=== PATIENT | male | born 1955 | race Caucasian/White ===

== ENCOUNTER 2023-12-27 01:35 | Observation (INO) | payer OTHER, SELFPAY ==
[2023-12-26 21:44] VITALS: BP 159/72
[2023-12-26 22:00] VITALS: BP 138/71
[2023-12-26 22:14] LABS: % Basophils 0.8 % (0-2); % Immature Granulocytes 0.5 % (0-0.5); % Lymphocytes 18.6 % (20.5-51.1); % Monocytes 9.2 % (1.7-9.3); % Neutrophils 67.9 % (42.2-75.2); Absolute Basophils 0.1 10^3/uL (0-0.2); Absolute Eosinophils 0.3 10^3/uL (0-0.7); Absolute Immature Granulocytes 0.1 10^3/uL (0-0.05); Absolute Neutrophils 7.4 10^3/uL (1.4-6.5); Hematocrit 32.4 % (39.0-52.0); Hemoglobin 11.2 g/dL (13.0-18.0); Mean Corp Hgb Conc. 34.6 g/dL (33.0-37.0); Mean Corpuscular Hgb 33.2 pg (27.0-31.0); Mean Corpuscular Volume 96.1 fL (80.0-94.0); Mean Platelet Volume 8.9 fL (7.4-10.4); Nucleated Red Blood Cells % 0 % (-); Platelet Count 346 10^3/uL (130-400); Red Blood Cell Count 3.37 10^6/uL (4.70-6.10); White Blood Cell Count 10.8 10^3/uL (4.8-10.8)
[2023-12-26 22:36] LABS: ALT (SGPT) 13 U/L (0-50); AST (SGOT) 23 U/L (17-59); Albumin 4.1 g/dl (3.5-5.0); Alkaline Phosphatase 62 U/L (38-126); Blood Urea Nitrogen 18 mg/dl (9-20); Carbon Dioxide 27 mmol/L (22-30); Chloride 106 mmol/L (98-107); Glucose 112 mg/dl (70-99); Potassium 4.1 mmol/L (3.5-5.1); Sodium 136 mmol/L (135-145); Total Bilirubin 0.4 mg/dl (0.2-1.3); Total Protein 6.9 g/dl (6.3-8.2); eGFR > 60.00
[2023-12-26 22:38] LABS: Troponin I < 0.012 ng/ml
--- NOTE | 2023-12-26 22:39 | ED.GENMED ---
History of Present Illness
General
Chief Complaint: Chest Pain
Source: patient, spouse and family
Exam Limitations: none
Time Seen by Provider: 12/26/23 22:12
Nursing documentation reviewed up to this point in time: agreed with
Travel History
Have you had any contact with someone who has COVID-19?: No
Do you have any symptoms of coronavirus? Fever > 100 degrees, chills, cough, shortness of breath, sore throat, loss of taste or smell, muscle aches, or headache?: No
History of Present Illness
History of Present Illness:
68-year-old male with a past medical history of DVT, hypothyroidism, CML, obesity who presents to the emergency department accompanied by his family for evaluation of chest pain. Patient reports onset of symptoms around an hour ago and they have
been constant and worsening since then�he reports pain is quite severe but started relatively mild. He describes a pressure sensation that starts in the left shoulder and radiates towards the left chest/upper back as well as towards the left neck
and head. No clear triggering or relieving factors noted�symptoms started while he was sitting at rest. He reports associated shortness of breath. He denies any abdominal pain, nausea, vomiting, diaphoresis. He denies any weakness or numbness in
his extremities, change in vision, change in speech. He denies having had similar symptoms in the past. He denies any known history of cardiac disease.
Past History
Past History
ED Past Medical History: Hypothyroidism and Other (herniated disc L5. Diagnosed 10 years ago. CHANEL)
ED Past Surgical History: Other (Hernia repair, eye surgery)
Social History
Tobacco: Former smoker
Personal:
Living: with family
Employment: Employed (is a cook)
Review of Systems
Review of Systems
All Other Systems: ROS reviewed and negative except as documented in HPI and ROS
Constitutional: Denies fever or chills
EENT: Denies sore throat or runny nose
Respiratory: Reports trouble breathing; Denies cough
Cardiac: Reports chest pain; Denies diaphoresis, palpitations or syncope
ABD/GI: Denies abdominal pain, nausea, vomiting or diarrhea
: Denies flank pain
Musculoskeletal: Reports back pain; Denies neck pain
Neurological: Reports headache; Denies dizzy, weakness or numbness
Phy Exam
Physical Exam
Physical Exam:
General: Awake, alert, oriented x3; appears uncomfortable
Head: Normocephalic, atraumatic
Eyes: Conjunctiva normal, EOMI, pupils equal round and reactive to light bilaterally
Throat: Airway intact, handling secretions
Neck: Trachea midline, supple without meningismus
Lungs: Clear to auscultation bilaterally, no wheezing, rales, rhonchi
Heart: Regular rate and rhythm, no murmurs, gallops, or rubs
Abd: Soft, non distended, nontender with no masses
Neuro: Cranial nerves grossly intact, speech fluid, no gross motor or sensory deficits
Skin: no rash
Extremities: No edema in extremities, equal pulses in all extremities
Scores
Heart Failure Risk
Heart Failure Risk Score: Not Applicable
Heart Score for Chest Pain Patients
STEMI patient?: No
History: Moderately Suspicious
ECG: Nonspecific Repolarization
Age: >/= 65 years
Risk Factors: 1 or 2 Risk Factors
Troponin: </= Normal Limit
Heart Score for Chest Pain Patients: 5
Heart Score Risk: 20.3% MACE over next 6 weeks
Withdrawal Assessment of Alcohol
Withdrawal Assessment Completed?: Not applicable
Course
Orders/Labs/Results
Orders:
Orders
12/26/23 21:43
Electrocardiogram (*1) Urgent
Reason for Study: Shortness of Breath
EKG- Treatment ONCE
12/26/23 22:07
Complete Blood Count/With Diff Urgent
Comprehensive Metabolic Panel Urgent
Troponin I Urgent
12/26/23 22:37
Portable Chest Xray [CR Chest Portable - 1 View] Urgent
Comment:
Reason For Exam: chest pain
Reason Study Needs to be Portable: Unable to Transport
12/26/23 22:39
CT Chest Pe Study Urgent
Comment:
Reason For Exam: left chest pain, h/o DVT
CT Head W/o Iv Contrast Urgent
Comment:
Reason For Exam: severe left headache
Morphine Sulfate 4 mg IV NOW STA
12/26/23 22:48
PTT Urgent
Prothrombin Time Urgent
12/27/23 01:00
Troponin I Urgent
Abnormal Lab Results
12/26/23
22:07
RBC 3.37 L 10^6/uL
(4.70-6.10)
Hgb 11.2 L g/dL
(13.0-18.0)
Hct 32.4 L %
(39.0-52.0)
MCV 96.1 H fL
(80.0-94.0)
MCH 33.2 H pg
(27.0-31.0)
Abs Immat Gran (auto) 0.1 H 10^3/uL
(0-0.05)
Absolute Neuts (auto) 7.4 H 10^3/uL
(1.4-6.5)
Absolute Monos (auto) 1.0 H 10^3/uL
(0.1-0.6)
Lymphocytes % 18.6 L %
(20.5-51.1)
Glucose 112 H mg/dl
(70-99)
12/26/23 22:07
12/26/23 22:07
Vital Signs
Initial and Last Documented VS:
Initial Vital Signs
Temp Pulse Resp BP Pulse Ox
36.7 C 71 18 159/72 97
12/26/23 21:44 12/26/23 21:44 12/26/23 21:44 12/26/23 21:44 12/26/23 21:44
Last Documented Vital Signs
Temp Pulse Resp BP Pulse Ox
36.7 C 72 20 138/71 97
12/26/23 21:44 12/26/23 23:19 12/26/23 22:45 12/26/23 22:00 12/26/23 23:00
MDM/Problems Addressed
Differential Diagnosis Includes:
Acute AL, acute pulmonary embolism, acute aortic dissection, pneumothorax, GERD, costochondritis
MDM/Problems Addressed:
68-year-old male presents to the emergency room for evaluation of significant left-sided chest pain rating to the left neck, shoulder, head as well as the mid back. Worsening over the past hour. He arrived hypertensive normalized by my assessment,
rest of vitals normal. EKG shows no STEMI. Plan to place an IV check labs including a CBC and a CMP, troponin. Will check a stat portable chest x-ray to rule out pneumothorax. If chest x-ray nondiagnostic plan likely for CTA to rule out PE given
his history and the acuity of onset with associated dyspnea. Check CT head given report of significant left-sided headache as well. Will monitor closely here reassess after the above.
Initial labs reviewed: CBC shows stable anemia, CMP no clinically significant abnormalities. Initial troponin undetectable. Awaiting imaging as above.
CTA of the chest negative for acute pulmonary embolism, negative for acute aortic dissection, no other acute pathology noted. CT head negative. Vitals have remained stable. Pain did improve with morphine. HEART score 5. Will admit for observation
overnight and serial troponins. Case discussed with hospitalist for admission.
Chronic conditions affecting care:
History of DVT no longer on anticoagulation�higher risk for DVT/PE
Acute Exacerbation and/or Progression of Chronic Illness:
Acutely hypertensive resolved without intervention continue to monitor but no emergent antihypertensive indicated at present
Acute Exacerbation and/or Progression of Chronic Illness: HTN
*Radiology
Radiology exam reviewed: preliminary read by ED provider and radiology read reviewed
*Pulse Oximetry
Patient hypoxic: no
*EKG
Interpreted by ED Provider?: Yes
Heart Rate: 66
Rate: normal
Rhythm: sinus
[place]: normal axis
Interval: normal interval
QRS Pattern: normal QRS
Ischemia: other (Inferior infarct age undetermined)
*Critical Care Note
Total Time (30-74mins, 75-104mins- exclusive of procedures): Not Applicable
Data Reviewed
Review of Other/Old Records Reveals: Labs and Records
Source: patient, records, spouse and family
Patient Management
Discussion with other providers: Hospitalist (Discussed with hospitalist)
Escalation/DeEscalation of care consider admission/obs:
Admission indicated
ED Attending Note
-
Portions of this chart may have been created with voice recognition software.� Occasional wrong word or��sound alike� substitutions may have occurred due to the inherent limitations of voice recognition software.
Discharge Plan
Departure
Patient Disposition: Admit
Date of Disposition: 12/27/23
Time of Disposition: 00:11
Admit to doctor: Oswald
Presentation/result/management discussed w/ accepting MD/DO: Hospitalist
Discharge Problem:
Chest pain
Prescriptions:
No Action
levothyroxine [Synthroid] 200 MCG tablet
200 mcg PO DAILY
acetaminophen [Tylenol] 325 mg Tablet
650 mg PO Q6HPRN PRN (Reason: mild pain)
cholecalciferol (vitamin D3) [Vitamin D3] 25 mcg (1,000 unit) Capsule
25 mcg PO DAILY
Referrals:
Nicolas Lester DO [Family Provider] -
Interventions
Interventions:
*Risk Screen - Suicide Last Done: 12/26/23 21:51
*General Assessment Last Done: 12/26/23 21:51
*Neglect/Abuse Screening Last Done: 12/26/23 21:51
ED- Fall Risk Assessment Last Done: 12/26/23 22:12
*ED COVID-19 Vaccine History Last Done: 12/26/23 21:57
ED- Cardiac Assessment Last Done: 12/26/23 22:12
Discharge Date and Time
Print Language: WOLOF
[2023-12-26] MEDS: MORPHINE SULFATE 4 MG IV (22:42)
[2023-12-26 23:08] LABS: INR 0.96; PT 12.6 Sec (11.4-14.6)
[2023-12-26 23:09] LABS: APTT 31.1 Sec (23.4-35.0)
[2023-12-26 23:25] VITALS: BP 158/81
[2023-12-27] VITALS (10 sets, daily range): BP systolic 118–165; BP diastolic 63–81; PULSE 75–78; BMI 33.2
[2023-12-27] MEDS: LOW STRENGTH ASPIRIN 324 MG PO (00:38)
--- NOTE | 2023-12-27 00:38 | HPS.HSE ---
Family Physician
-
Family Physician: Nicolas Lester
Chief Complaint
-
chest pain
History of Present Illness
This is a 68-year-old male with past medical history that is significant for CML currently in remission on imatinib, depression, hypothyroidism, CHANEL who presents to the emergency department with acute onset of a left-sided chest pain that started
around 2 hours prior to coming to the emergency department.
Patient reported that he was sitting down after dinner when he suddenly developed a sharp chest pain that started in the left shoulder and appears to be radiating down the left axillary region as well as to the left shoulder and left neck. The pain
is worse with inspiration. It is also worse with abduction of the arm across the chest as well as with coughing. He does not appear to be affected by laying down or sitting up. Associated with some shortness of breath coming from pain with deep
inspiration. He denies any nausea or vomiting. He denies any diaphoresis. He denied having palpitations lightheadedness or dizziness.
Patient reported that he had been in usual state of health but a few days earlier he reports that he multiple family members had cold and flu symptoms with rhinorrhea cough and congestion. He has not had fevers or chills. He denies any productive
cough. Patient denies fall, changes in physical activity, rash or medication changes.
Patient had a stress test about a year ago which was negative. He denies manage personal history of CAD, CVA, diabetes or hyperlipidemia. Reports history of childhood asthma but no recent exacerbations.
On arrival in the emergency department the patient was afebrile hemodynamically stable and in moderate distress due to chest pain. Blood pressure was 138/70 pulse 72 oxygen saturation 97% on room air. ECG showed normal sinus rhythm rate 66
possible Q waves in 3 but otherwise unremarkable. X-ray reported a possible left lower lobe infiltrate versus atelectasis. CBC with a white count of 10.8, hemoglobin of 11 platelet of 346. Electrolytes BUN/creatinine all within normal limits.
Troponin was negative. CT PE with nothing acute.
Medical History
Past Medical History
Past Medical History: Reports Asthma and Hypothyroidism
Additional Past Medical History:
CML
CHANEL
Past Surgical History: Reports None
Social History
Tobacco: Non-smoker
Alcohol: None
Drug: None
Personal:
Living: With Family
Employment: Retired
Family History
Family History: Not pertinent
Allergies / Home Medications
Allergies reflects when Allergies were last updated in [facility].
Home Medications with original date entered in [facility]
Allergy/Medication List:
Allergies
Allergy/AdvReac Type Severity Reaction Status Date / Time
No Known Allergies Allergy Verified 12/20/22 08:19
Home Medications
levothyroxine 200 mcg tablet (Synthroid) 200 mcg PO DAILY 12/09/18
acetaminophen 325 mg tablet (Tylenol) 650 mg PO Q6HPRN PRN mild pain 12/20/22
cholecalciferol (vitamin D3) 25 mcg (1,000 unit) capsule (Vitamin D3) 25 mcg PO DAILY 12/20/22
Review of Systems
-
History Source: Patient
Constitutional: Reports No Symptoms
EENT: Reports No Symptoms
Respiratory: Reports No Symptoms
Cardiac: Reports Chest Pain
Abdomen/GI: Reports No Symptoms
: Reports No Symptoms
Musculoskeletal: Reports No Symptoms
Skin: Reports No Symptoms
Neurological: Reports No Symptoms
Endocrine: Reports No Symptoms
Hematologic/Lymphatic: Reports No Symptoms
Psych: Reports No Symptoms
Physical Exam
Vital Signs
Vital Signs
Temp Pulse Resp BP Pulse Ox
98.1 F 76 19 165/81 99
12/26/23 21:44 12/27/23 00:30 12/27/23 00:30 12/27/23 00:00 12/27/23 00:30
Physical Exam
General: Well Developed, Well Nourished and Obese
HEENT: NormoCephalic, Anicteric, Moist mucous membranes and PERRLA
Respiratory: Clear, Crackles (LLL) and Other (Chest Wall Tenderness to palpation including sternum, left chest, left shoulder and left upper arm)
Cardiac: S1/S2 and Regular Rhythm
GI: Soft, Non Tender and Normal Bowel Sounds
Rectal: Deferred by Provider
Genito-urinary: Deferred by me
Musculoskeletal: No Clubbing, No Cyanosis and No Edema
Skin: Warm and Dry
Neuro: AO x 3
Hematologic/Lymphatic: No Lymphadenopathy
Psych: Calm
Laboratory Results
-
12/26/23 22:07
12/26/23 22:07
Laboratory Results
PT 12.6 Sec (11.4-14.6) 12/26/23 22:48
INR 0.96 12/26/23 22:48
APTT 31.1 Sec (23.4-35.0) 12/26/23 22:48
Total Bilirubin 0.4 mg/dl (0.2-1.3) 12/26/23 22:07
AST 23 U/L (17-59) 12/26/23 22:07
ALT 13 U/L (0-50) 12/26/23 22:07
Alkaline Phosphatase 62 U/L (38-126) 12/26/23 22:07
Troponin I < 0.012 ng/ml 12/26/23 22:07
Data Reviewed
-
Diagnostic Radiology: Image Personally Visualized and interpreted and Report Reviewed by me
CT Scan: Report Reviewed by me
Medical Tests (Nuc Med, Echo, EKG etc): Image Personally Visualized and interpreted
Lab Data: Labs Reviewed by me
Old Records: Reviewed
Impression/Plan
-
IMPRESSION:
PLAN:
1. Chest Pain - 68 y.o male with acute onset of left sided chest pain exacerbated by deep breathing, cough, movement of the shoulder, no associated nausea, vomiting or diaphoresis. Chest pain appears to be pleuritic in nature but tenderness to
palpation suggests musculoskeletal source. Troponin is negative. ECG without acute ischemia. CT PE is negative for PE. Xray suggestive of possible LLL infiltrate but not noted on the CT scan. No prior h/o CAD. Patient likely has non-cardiac
chest pain. Pleurisy vs costochondritis.
- admit to observation
- cycle cardiac enzymes
- aspirin 324 x 1 for now.
- telemetry
- obtain lipid panel and a1c
- given concern for inflammatory process, will give toradol 15mg now then prn
2. Hypothyroid - Continue levothyroxine
3. CHANEL
- CPAP HS
DVT PPX with lovenox sq
Full Code
[2023-12-27] MEDS: TORADOL 15 MG IV (01:03)
[2023-12-27 01:33] LABS: Troponin I < 0.012 ng/ml
--- NOTE | 2023-12-27 02:46 | PTCARENOTE ---
Patient arrived to 3 316-1 from ED via stretcher, ambulated from stretcher to bed Independently. Patient went into bathroom upon arrival and had BM. Patient is awake, alert and oriented. Currently patient is c/o pain to left side of body from
shoulder down to hip, left chest, and headache -- received IV Toradol in ED with slight relief prior to coming to unit -- see MAR. Patient is wearing glasses, states he wears upper and lower partial dentures that were left at home. Initiated on
ekg monitor tech #[id number] -- SR with BBBC and prolonged QT noted. CPAP at bedside and will be reconnected by respiratory once patient is settled in bed. Call lawrence placed within reach, patient verbalizes understanding of use. Will continue to monitor.
[2023-12-27 04:20] LABS: HDL Cholesterol 37 mg/dl; LDL Cholesterol, Calculated 84 mg/dl; Total Cholesterol 160 mg/dl (50-199); Triglyceride 198 mg/dl (10-149); Very Low Density Lipoprotein 39 mg/dl (0-30)
[2023-12-27 04:31] LABS: Troponin I < 0.012 ng/ml
[2023-12-27 05:08] LABS: Hepatitis C Antibody Negative (Negative)
[2023-12-27] MEDS: SYNTHROID 200 MCG PO (06:13)
--- NOTE | 2023-12-27 07:52 | CON.CAR ---
Addendum entered and electronically signed by Anna Velazquez MD 12/27/23 11:25:
Patient seen and evaluated personally. I agree with the note, documentation and plan of care as documented below.
68-year-old gentleman presented with nonspecific chest pain associated with inspiration and movement. Troponin is negative x 4. EKG is stable. Chest pain is atypical. CT scan done which was negative for PE.
Minimal risk factors including prediabetes, hemoglobin A1c is 5.1. Chest x-ray shows possible early pneumonia. Treatment as per primary team. Patient needs a stress test that can be done as an outpatient. If still here on Friday, we will try
getting it done during this hospitalization otherwise plan for outpatient workup.
Original Note:
Consultation
Consultation Request
Date/Time Consultation Requested: 12/27/2023 07:25
Date/Time Consultation Performed: 12/27/2023 09:10
Requesting Provider: Dr. Hector
Performing Provider: KASI Forbes for Dr. Velazquez
Reason for Consultation: Chest pain
Medical History
-
History of Present Illness:
Billy Duvall is a 68-year-old male with CML (in remission on imatinib), hypothyroidism, and CHANEL who presented to the emergency department with a chief complaint of chest pain. He was seated at the table watching his son doing art when he experienced
sudden onset of left-sided anterior chest pain. It went from his mid sternum into his axilla. The pain gets worse with inspiration. It gets worse when he lays flat. It does not change if he bends forward. He denies associated diaphoresis,
palpitations, dizziness, and nausea. He has no family history of coronary artery disease.
Primary Machine Programmer: Dr. Osborn
Past Medical History
Past Medical History: Cancer (CML), Hypothyroidism and Other (CHANEL)
Social History
Tobacco: Non-Smoker
Alcohol: None
Drug: None
Personal:
Living: With Family
Family History
Family History: Reviewed & Not Pertinent
Allergies / Home Medications
Allergy/AdvReac Type Severity Reaction Status Date / Time
No Known Allergies Allergy Verified 12/20/22 08:19
�Medication �Instructions �Recorded �Confirmed �Type
levothyroxine 200 mcg tablet 200 mcg PO DAILY 12/09/18 12/27/23 History
(Synthroid)
acetaminophen 325 mg tablet 650 mg PO Q6HPRN PRN mild pain 12/20/22 12/27/23 History
(Tylenol)
cholecalciferol (vitamin D3) 25 25 mcg PO DAILY 12/20/22 12/27/23 History
mcg (1,000 unit) capsule (Vitamin
D3)
Review of Systems
-
History Source: Patient
All other systems: Negative unless noted
Constitutional: No Symptoms
Cardiac: Chest Pain
Abdomen/GI: No Symptoms
: No Symptoms
Physical Exam
Vital Signs
Temp Pulse Resp BP Pulse Ox
97.9 F 68 14 127/75 96
12/27/23 07:00 12/27/23 07:00 12/27/23 07:00 12/27/23 07:00 12/27/23 07:00
Lab Results
12/26/23 22:07
12/26/23 22:07
Troponin I < 0.012 ng/ml 12/27/23 03:50
Physical Exam
General: Well Developed, Well Nourished, No Apparent Distress and Comfortable
HEENT: Normocephalic and Moist Mucous Membranes
Respiratory: Non Labored Respirations
Cardiac: S1/S2 and Regular Rhythm; Negative Peripheral Edema
Breast: Deferred by me
GI: Soft, Non Tender, Non Distended and Normal Bowel Sounds
Rectal: Deferred by Provider
Genito-urinary: No Costovertebral Tender
Musculoskeletal: No Clubbing, No Cyanosis and No Edema
Skin: Warm and Dry
Neuro: AO x 3
Hematologic/Lymphatic: No Lymphadenopathy
Psych: Calm
Impression / Plan
-
Chest pain
-Greater than 60 minutes of severe chest pain
-Chest pressure gets worse with deep breath and movement
-No PE on CT
-Troponin < 0.012 x 4
-EKG stable
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
Hypothyroidism, on levothyroxine
Prediabetes, HgbA1c 5.1%
Data Reviewed
-
EKG: Report Reviewed by me (Sinus rhythm, rate 65)
Radiology: Report Reviewed by me (CXR: Possible mild developing left lower lobe pneumonia versus atelectasis. Clinical and laboratory correlation recommended. New.)
CT Scan: Report Reviewed by me (Chest: No CTA evidence for acute central pulmonary arterial embolus; Head: No CT evidence for acute intracranial disease.)
Labs: Labs Reviewed by me
Old Records: Reviewed
[2023-12-27] MEDS: PROTONIX 40 MG PO (08:05)
[2023-12-27] MEDS: TYLENOL 650 MG PO (08:09)
[2023-12-27 08:30] LABS: Troponin I < 0.012 ng/ml
--- NOTE | 2023-12-27 09:24 | W.PN.HOSP.TC ---
Today's Communication/Plan
-
Await cardiology evaluation
X-ray of the thoracic spine
Assessment / Plan
Assessment / Plan
68-year-old male with history of CML admitted for chest pain
On examination patient is awake alert oriented
States that he has more pain with movement or deep breath
Cardiovascular system S1-S2 appreciated
No rub
Chest clear to auscultation
Abdomen soft and nontender
No thoracic spine tenderness noted
# Chest pain worse with movement troponin is negative so far
ECG without any ischemia
Patient has risk factors for coronary artery disease
CT PE study is negative
Aspirin
Add PPI
Stop Toradol
X ray of Thoracic spine
Also await cardiology evaluation to see if any concerns for pericarditis
# Hypothyroidism-continue Synthroid
# Sleep apnea for continue CPAP
# CML-On Gleevec as OP-Advised to bring from home.
# Obesity per BMI
# History of DVT in the past
# DVT prophylaxis-subcutaneous Lovenox
# Full code
D/W Cards
Anticipated Discharge: Within 24 hours
Subjective/Interval History
-
Date of Service: December 27, 2023
Objective Data
-
Labs:
Laboratory Results
12/26/23 12/26/23
22:07 22:48
WBC 10.8
Hgb 11.2 L
Hct 32.4 L
Plt Count 346
PT 12.6
INR 0.96
APTT 31.1
Sodium 136
Potassium 4.1
Chloride 106
Carbon Dioxide 27
BUN 18
Creatinine 0.9
Glucose 112 H
Calcium 9.0
Total Bilirubin 0.4
AST 23
ALT 13
Alkaline Phosphatase 62
Vital Signs:
Vital Signs
Temp Pulse Resp BP Pulse Ox
97.9 F 68 14 127/75 96
12/27/23 07:00 12/27/23 07:00 12/27/23 07:00 12/27/23 07:00 12/27/23 07:00
--- NOTE | 2023-12-27 09:26 | CM ---
Addendum entered by Shirley Bauer 12/28/23 15:45:
Plan: discharge to home when medically cleared; no needs; will provide ride home
Addendum entered by Shirley Bauer 12/27/23 09:32:
NICHOLS form explained and signed
Original Note:
Met with patient at bedside; initial assessment completed
Pharmacy verified: [facility]
Patient reports he lives with his and 26 yr old son who has Down Syndrome in a multilevel home; powder room on the 1st floor; 2nd floor bath has tub with shower, grab bar, and chair
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
DME: CPAP
SNF/Rehab/Home Health utilization history: none
Transportation: will provide ride home
Plan: discharge plan to be determined pending hospital course; will continue to monitor for needs
[2023-12-27 09:31] LABS: Glycohemoglobin (HgbA1c) 5.8 % (4.0-5.6)
[2023-12-27] MEDS: LOVENOX 40 MG SC (18:16)
[2023-12-27 19:07] LABS: Procalcitonin < 0.05 ng/ml (0.0-0.25)
[2023-12-28 03:19] VITALS: BP 135/67
[2023-12-28] MEDS: SYNTHROID 200 MCG PO (05:29)
[2023-12-28 07:00] VITALS: BP 138/70
[2023-12-28] MEDS: PROTONIX 40 MG PO (08:03)
[2023-12-28] MEDS: TYLENOL 650 MG PO ×2 (08:05→17:27)
[2023-12-28 11:00] VITALS: BP 124/56
[2023-12-28] MEDS: OMNIPAQUE 50 ML PO (12:03)
[2023-12-28 12:13] LABS: Blood Urea Nitrogen 15 mg/dl (9-20); Calcium 9.3 mg/dl (8.4-10.2); Carbon Dioxide 25 mmol/L (22-30); Chloride 105 mmol/L (98-107); Estimated Creatinine Clearance 107 ml/min; Glucose 89 mg/dl (70-99); Potassium 4.3 mmol/L (3.5-5.1); Sodium 138 mmol/L (135-145); eGFR > 60.00
--- NOTE | 2023-12-28 13:49 | W.PN.HOSP.TC ---
Today's Communication/Plan
-
CT A/P
Assessment / Plan
Assessment / Plan
68-year-old male with history of CML admitted for chest pain.
Now says LUQ and also lumbar area pain
On examination patient is awake alert oriented
States that he has more pain with movement or deep breath
Cardiovascular system S1-S2 appreciated
No rub
Chest clear to auscultation
Abdomen- mild tenderness Left UQ and Lumbar
No thoracic spine tenderness noted
# Chest pain worse with movement troponin is negative so far
ECG without any ischemia
Patient has risk factors for coronary artery disease
CT PE study is negative
Aspirin
Added PPI
X ray of Thoracic spine with no changes
CT A/P
Stress test at some point per cards.
# Hypothyroidism-continue Synthroid
# Sleep apnea for continue CPAP
# CML-On Gleevec as OP-Advised to bring from home.
# Obesity per BMI
# History of DVT in the past
# DVT prophylaxis-subcutaneous Lovenox
# Full code
D/W RN
Anticipated Discharge: Within 24 hours
Subjective/Interval History
-
Date of Service: December 28, 2023
Objective Data
-
Labs:
Laboratory Results
12/28/23
11:52
Sodium 138
Potassium 4.3
Chloride 105
Carbon Dioxide 25
BUN 15
Creatinine 0.8
Glucose 89
Calcium 9.3
Vital Signs:
Vital Signs
Temp Pulse Resp BP Pulse Ox
98.8 F 63 18 124/56 98
12/28/23 11:00 12/28/23 11:00 12/28/23 11:00 12/28/23 11:00 12/28/23 11:00
I&O
04/12/28/23 12/29/23
06:59 06:59 06:59
Intake Total 1225 / 1225
Balance 1225 / 1225
[2023-12-28 15:00] VITALS: BP 119/70
[2023-12-28] MEDS: ZOFRAN 4 MG IV (17:43)
[2023-12-28] MEDS: LOVENOX 40 MG SC (17:44)
[2023-12-28 20:40] VITALS: BP 115/58
[2023-12-28 23:21] VITALS: BP 118/61
[2023-12-29 04:52] VITALS: BP 125/64
[2023-12-29] MEDS: SYNTHROID PO (05:34)
[2023-12-29 07:00] VITALS: BP 143/67
[2023-12-29] MEDS: PROTONIX PO (07:41)
--- NOTE | 2023-12-29 08:50 | W.PN.CD ---
Addendum entered and electronically signed by Josue Méndez MD 12/29/23 09:04:
Reviewed with Dr Bender
Original Note:
Today's Communication / Plan
-
Patient wants to go home this morning. Troponins x 4
inspiratiory ruq pain not consistent with angina. He had some shoulder pain earlier this admit (? referred pain)
Evaluation of RUQ pain and assessement of LLL consolidation on abd CT as per hospitlists
Patient would like to go home. He would prefer to have outpatient lexiscan. Reasonable to arrange as outpatient.
will reviwe with primary team
Impression / Plan
-
Chest pain
-Patietn reported left shoulder pain withLUQ and left flank paitn and he also enamorado dsome chest dscomfort. despite and hour of chest and shoulder symtposm. troponins x 4 negative. He has LUQ and left falnk pain with inspiration whihcis not consistent
with ischemia
-No PE on CT
- abd CT 12/28/23 small left pleural effusion and mild LLL consolidation, pna vs atelectasis.
-Troponin < 0.012 x 4
-EKG stable
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
Hypothyroidism, on levothyroxine
Prediabetes, HgbA1c 5.1%
Physical Exam
Vital Signs/Labs
Vital Signs
Temp Pulse Resp BP Pulse Ox
97.9 F 63 18 143/67 98
12/29/23 07:00 12/29/23 07:00 12/29/23 07:00 12/29/23 07:00 12/29/23 07:00
12/26/23 22:07
12/28/23 11:52
PT 12.6 Sec (11.4-14.6) 12/26/23 22:48
INR 0.96 12/26/23 22:48
APTT 31.1 Sec (23.4-35.0) 12/26/23 22:48
Triglycerides 198 mg/dl (10-149) H 12/27/23 03:50
LDL Cholesterol, Calc 84 mg/dl 12/27/23 03:50
VLDL Cholesterol, Calc 39 mg/dl (0-30) H 12/27/23 03:50
HDL Cholesterol 37 mg/dl 12/27/23 03:50
LAB Results
12/26/23 12/27/23 12/27/23
22:07 00:57 03:50
Troponin I < 0.012 < 0.012 < 0.012
12/27/23
07:59
Troponin I < 0.012
Physical Exam
Constitutional: No acute distress
Cardiovascular: Rhythm & rate is regular
Respiratory: Lungs clear to auscul., Crackles Absent and Other (LUQ discomfort with inspiration)
GI: Soft, Non tender, Normal bowel sounds and Other (No HSM detected )
Neuro/Psych: Alert
Data Reviewed
-
Date of Service: December 29, 2023
EKG: Report Reviewed by me
X-Ray/CT/US/MRI/NUC/PET: Report Reviewed by me
Medical Tests (PFT, Pathology etc): Report Reviewed by me
Labs: Labs Reviewed by me
--- NOTE | 2023-12-29 09:20 | W.PN.HOSP.TC ---
Today's Communication/Plan
-
d/c home
Assessment / Plan
Assessment / Plan
1. Left lower chest pleurisy
Mild basilar pneumonia versus atelectasis
-CT chest PE neg for clot, does have LL atelectasis vs pna
-ECG without any ischemia, no trop elevation.
-Suspecting pleurisy involving left lower lung. Patient had week back URTI symptoms.
-immuno-compromised with CML h/o and providing short course of abx
-Symptomatic care with NSAIDs for 5 days
-Patient to follow-up with cardiology in office for repeat evaluation for possible need of elective stress test.
# Hypothyroidism-continue Synthroid
# Sleep apnea for continue CPAP
# CML-On Gleevec as OP-Advised to bring from home.
# Obesity per BMI
# History of DVT in the past
# DVT prophylaxis-subcutaneous Lovenox
# Full code
Case discussed with cardiology
More than 30 minutes spent in discharge including
Final examination of the patient
Summarizing hospital stay
Instructions for continuing care to all relevant caregivers
Preparation of discharge records, prescriptions, and referral forms
Total time spent (in minutes): 38 mins
Anticipated Discharge: Today
Subjective/Interval History
-
Date of Service: December 29, 2023
Having some left lower chest pain on deep inspiration/cough
Afebrile overnight
Objective Data
-
Vital Signs:
Vital Signs
Temp Pulse Resp BP Pulse Ox
97.9 F 63 18 143/67 98
12/29/23 07:00 12/29/23 07:00 12/29/23 07:00 12/29/23 07:00 12/29/23 07:00
I&O
12/28/23 12/29/23 12/30/23
06:59 06:59 06:59
Intake Total 1225 / 1225 960 / 960
Balance 1225 / 1225 960 / 960
Review of Systems
-
Respiratory: Denies Cough or Trouble Breathing
Cardiac: Reports No Symptoms
Abdomen/GI: Reports No Symptoms
Physical Exam
-
General: No Apparent Distress and Comfortable
HEENT: Negative Oxygen
Respiratory: Clear to Auscultation
Cardiac: Regular Rhythm and S1/S2; Negative Murmur or Rub
GI: Soft, Nontender, Nondistended and Normal Bowel Sounds
Musculoskeletal: No Edema
Neuro: Awake, Alert, Oriented, No Motor Deficits and Nonfocal/Grossly Intact
Psych: Calm
[2023-12-29] MEDS: VIBRAMYCIN 100 MG PO (10:20)
[2023-12-29] MEDS: OMNICEF 300 MG PO (10:20)
[2023-12-29 11:00] VITALS: BP 136/86
--- NOTE | 2023-12-30 08:04 | W.DCSUMMARY ---
Discharge Summary
Discharge Data
Date of Admission: 12/27/23
Date of Discharge: 12/29/23
-
Pending Results: No
Hospital Course
Discharging Physician : Dr Chester Bender
Disposition : To home
Primary care physician : Dr Nicolas Lester
Principal Discharge diagnosis :
Left-sided chest pain likely from pleurisy
Left lower lobe pneumonia
Chronic Discharge diagnosis :
Chronic myeloid leukemia
Hypothyroidism
Sleep apnea
History of deep venous thrombosis
Hospital Course :
Patient is a 68-year-old male with mentioned past medical history came to ER with new onset of left-sided chest pain starting 2 hours prior to ER visit. Pain was sharp in nature with some radiation to left shoulder and axillary region. Pain was
worse with inspiration and on arm abduction. Initial EKG did not show any new ST segment changes. Troponin was negative as well. A CT chest PE was done which ruled out any pulmonary embolism. X-ray of thoracic spine was negative for any
fractures. Cardiology was involved in care for evaluation and patient was monitored in the hospital for 48 hours. Serial set of troponin remained negative. Patient pain was more localizing to left lower chest/back and on CT chest images reviewed
there was question of having possible left lower lobe atelectasis/pneumonia. Patient likely was felt to have component of pleurisy from underlying lung pathology. Patient was provided a short course of antibiotic and symptomatic treatment for pain
control. At this point patient was discharged home with patient to follow-up in cardiology office for elective stress test.
Important imaging findings :
None
Procedure findings :
None
Discharge Plan
-
Patient Disposition: Home (Routine Discharge)
Discharge Diagnosis/Procedures: Chest pain, hypothyroidism, CML, sleep apnea
Condition: Fair
Diet: As tolerated
Activity: As tolerated and No strenuous activity
Driving Restrictions: As prior to admission
Activity Restrictions/Additional Instructions:
Stress test as outpatient. Follow-up with cardiology for that
Referrals:
Anna Velazquez MD [Active] - in two to four weeks
Nicolas Lester DO [Family Provider] - in less than 1 week
Prescriptions:
New
pantoprazole 40 mg Tablet,Delayed Release (Dr/Ec)
40 mg PO DAILY Qty: 15 0RF
Gleevec
1 tab PO DAILY Qty: 0 0RF
cefdinir 300 mg capsule
300 mg PO BID 5 Days Qty: 10 0RF
doxycycline hyclate 100 mg tablet
100 mg PO BID Qty: 10 0RF
ibuprofen [Advil] 200 mg tablet
600 mg PO Q8H Qty: 30 0RF
Rx Instructions:
DONT USE FOR MORE THAN 5 DAYS
Continued
acetaminophen [Tylenol] 325 mg Tablet
650 mg PO Q6HPRN PRN (Reason: mild pain)
levothyroxine [Synthroid] 200 MCG tablet
200 mcg PO DAILY Qty: 0 0RF
cholecalciferol (vitamin D3) [Vitamin D3] 25 mcg (1,000 unit) Capsule
25 mcg PO DAILY Qty: 0 0RF
Discharge Orders:
Discharge Patient (As Directed); Ordered 12/29/23
Ordered By: Chester Bender
Discharge Date and Time
Discharge Date/Time: 12/29/23 13:35
Print Language: YEMENI
== END 2023-12-29 13:35 | disposition home or self-care (01) ==
LOC: 3 WEST ACU 01:35
PROVIDERS: Emergency Medicine; Hospitalist; ADMITTING PHYSICIAN Internal Medicine; ATTENDING PHYSICIAN Hospitalist; CONSULT PHYSICIAN Internal Medicine Cardiovascular Disease; EMERGENCY PHYSICIAN Emergency Medicine; FAMILY PHYSICIAN Family Medicine
PROC: 5A09357 Assistance with Respiratory Ventilation, Less than 24 Consecutive Hours, Continuous Positive Airway Pressure (ICD-10-PCS; 2023-12-27)
DX: J18.9 Pneumonia, unspecified organism (principal); R07.89 Other chest pain; C92.11 Chronic myeloid leukemia, BCR/ABL-positive, in remission; E03.9 Hypothyroidism, unspecified; E66.9 Obesity, unspecified; F32.A Depression, unspecified; G47.33 Obstructive sleep apnea (adult) (pediatric); J45.909 Unspecified asthma, uncomplicated; R73.03 Prediabetes; D64.9 Anemia, unspecified; N40.0 Benign prostatic hyperplasia without lower urinary tract symptoms; Z68.33 Body mass index [BMI] 33.0-33.9, adult; Z79.899 Other long term (current) drug therapy; Z86.718 Personal history of other venous thrombosis and embolism; Z87.891 Personal history of nicotine dependence
CPT/HCPCS: 70450; 71045; 71275; 72072; 74177; 80048; 80053; 80061; 83036; 84145; 84484; 85025; 85610; 85730; 86803; 93005; 93017; 94660; 96374; 99285; G0378; J2785; Q9967

== ENCOUNTER → 2024-01-02 11:45 | Outpatient (REF) | payer OTHER, SELFPAY | LOC: DHCBC/DCA 11:45 | PROVIDERS: ATTENDING PHYSICIAN Nurse Practitioner Gerontology; FAMILY PHYSICIAN Family Medicine | DX: R07.9 Chest pain, unspecified (principal) | CPT/HCPCS: 78452; 93017; A9500; J2785 ==

== ENCOUNTER → 2024-08-16 13:28 | Outpatient (REF) | payer OTHER, SELFPAY | LOC: HWRAD 13:28 | PROVIDERS: ATTENDING PHYSICIAN Nurse Practitioner Adult Health; FAMILY PHYSICIAN Family Medicine | DX: C92.Z0 Other myeloid leukemia not having achieved remission (principal) | CPT/HCPCS: 71046 ==

== ENCOUNTER → 2024-08-31 14:34 | Outpatient (REF) | payer OTHER, SELFPAY | LOC: RAD 14:34 | PROVIDERS: ATTENDING PHYSICIAN Internal Medicine Hematology & Oncology; FAMILY PHYSICIAN Family Medicine | DX: C92.Z0 Other myeloid leukemia not having achieved remission (principal) | CPT/HCPCS: 76700 ==

== ENCOUNTER → 2024-10-11 14:34 | Outpatient (REF) | payer OTHER, SELFPAY | LOC: RAD 14:34 | PROVIDERS: ATTENDING PHYSICIAN Internal Medicine Hematology & Oncology; FAMILY PHYSICIAN Family Medicine | DX: C92.Z0 Other myeloid leukemia not having achieved remission (principal); R07.1 Chest pain on breathing; R16.1 Splenomegaly, not elsewhere classified | CPT/HCPCS: 71260; 74160; Q9967 ==

== ENCOUNTER → 2025-01-27 12:04 | Outpatient (REF) | payer OTHER, SELFPAY ==
[2025-01-27 11:41] LABS: % Basophils 0.7 % (0-2); % Eosinophils 4.1 % (0-6); % Immature Granulocytes 0.2 % (0-0.5); % Monocytes 9.2 % (1.7-9.3); % Neutrophils 63.8 % (42.2-75.2); Absolute Eosinophils 0.3 10^3/uL (0-0.7); Absolute Lymphocytes 1.3 10^3/uL (1.2-3.4); Absolute Monocytes 0.6 10^3/uL (0.1-0.6); Absolute Neutrophils 3.9 10^3/uL (1.4-6.5); Hematocrit 34.7 % (39.0-52.0); Hemoglobin 11.2 g/dL (13.0-18.0); Mean Corp Hgb Conc. 32.3 g/dL (33.0-37.0); Mean Corpuscular Hgb 33.4 pg (27.0-31.0); Mean Corpuscular Volume 103.6 fL (80.0-94.0); Mean Platelet Volume 8.7 fL (7.4-10.4); Platelet Count 343 10^3/uL (130-400); Red Blood Cell Count 3.35 10^6/uL (4.70-6.10); White Blood Cell Count 6.1 10^3/uL (4.8-10.8)
== END ==
LOC: OIDL 12:04
PROVIDERS: ATTENDING PHYSICIAN Internal Medicine Hematology & Oncology
DX: C92.Z0 Other myeloid leukemia not having achieved remission (principal); R07.1 Chest pain on breathing; R16.1 Splenomegaly, not elsewhere classified; R91.8 Other nonspecific abnormal finding of lung field
CPT/HCPCS: 85025

== ENCOUNTER → 2025-08-17 12:52 | Outpatient (REF) | payer OTHER, SELFPAY | LOC: RAD 12:52 | PROVIDERS: ATTENDING PHYSICIAN Internal Medicine Hematology & Oncology; FAMILY PHYSICIAN Family Medicine | DX: C92.Z0 Other myeloid leukemia not having achieved remission (principal); R07.1 Chest pain on breathing; R91.8 Other nonspecific abnormal finding of lung field; R60.0 Localized edema | CPT/HCPCS: 93971 ==